=== PATIENT | male | born 1970 | race Caucasian/White ===

== ENCOUNTER 2021-08-09 12:14 | Emergency (ER) | payer SELFPAY ==
--- OUTSIDE RECORDS SUMMARY | 2021-08-09 12:17 | XMS REPORT | Continuity of Care Document ---
:1970 Author Organization [facility] t Address [address] [place] [address] Dr. Strauss [address] [place] [id number] Care Team Providers Name Role Phone Valente PARSONS Attending Clinician Unavailable Neela ASHER Attending Clinician Unavailable De REZA Attending Clinician Unavailable Problems This patient has no known problems. Allergies, Adverse Reactions, Alerts Allergy Allergy Status Severity Reaction(s) Onset Inactive Treating Comm ents Source Name Type Date Date Clinician NO KNOWN Drug Active [facility] Medications This patient has no known medications. Procedures This patient has no known procedures. Encounters Start End Encounter Admission Attending Care Care Encounter Source Date/Time Date/Time Type Type Clinicians Facility Department ID 2020-04-09 2020-04-09 Emergency X PARSONS [facility] ERT [id number] [facility] 02:09:00 02:09:00 [facility] 2020-04-07 2020-04-07 Emergency X LB [facility] ERT [id number] [facility] 08:13:00 08:13:00 [facility] 2020-03-19 2020-03-19 Emergency X GRACIELA REZA [facility] ERT [id number] [facility] 14:02[facility] 2020-02-03 2020-02-03 Emergency X [facility] ERT [id number] [facility] 18:26[facility] 2020-01-01 2020-01-01 Emergency X [facility] ERT [id number] Univers 17:37:53 17:37:53 [facility] Results This patient has no known results.
[2021-08-09] MEDS ORDERED: TETRACAINE HCL 0.5% 4ML OPTH ONE (13:04)
--- NOTE | 2021-08-09 13:24 | ER ---
Nurse's Notes [facility] Name: Edward Altamirano Age: 51 yrs Sex: Male : 1970 Arrival Date: 08/09/2021 Time: 12:15 Bed 30 Private MD: Diagnosis: Foreign body in cornea, right eye, initial encounter Presentation: 08/09 12:37 Chief complaint: Patient states: Possible FB to R eye since last night. Coronavirus ll1 screen: Vaccine status: Patient reports being unvaccinated. Client denies travel out of the [place] in the last 14 days. At this time, the client does not indicate any symptoms associated with coronavirus-19. Ebola Screen: Patient denies travel to an Ebola-affected area in the 21 days before illness onset. Initial Sepsis Screen: Does the patient meet any 2 criteria? No. Patient's initial sepsis screen is negative. Does the patient have a suspected source of infection? Yes: Other: eye. Risk Assessment: Do you want to hurt yourself or someone else? Patient reports no desire to harm self or others. Onset of symptoms was August 08, 2021. 12:37 Method Of Arrival: Ambulatory ll1 12:37 Acuity: BESSY 4 ll1 Triage Assessment: 12:53 General: Behavior is calm, cooperative. Pain: Complains of pain in right eye. ss7 Historical: - Allergies: 12:38 No Known Allergies; ll1 - PMHx: 12:38 None; ll1 - PSHx: 12:38 None; ll1 - Immunization history:: Client reports having NOT received the Covid vaccine. - Social history:: Smoking status: Patient reports the use of cigarette tobacco products, smokes one pack cigarettes per day. - Family history:: not pertinent. - Hospitalizations: : No recent hospitalization is reported. Screenin:48 Abuse screen: Denies threats or abuse. Nutritional screening: No deficits noted. ss7 Tuberculosis screening: No symptoms or risk factors identified. Fall Risk None identified. Assessment: 12:50 General: Appears in no apparent distress. Neuro: No deficits noted. Cardiovascular: No ss7 deficits noted. Respiratory: No deficits noted. GI: No deficits noted. EENT: Reports FOREIGN BODY TO OS. VISUAL ACUITY FOLLOWS: OU: 20/30 0D:20/40 OS:20/30. Derm: No deficits noted. Musculoskeletal: No deficits noted. 13:42 Reassessment: Pt given dc instructions with all personal belongings. States that ss7 symptoms have improved. Ambulatory to check out with all personal belongings. . Vital Signs: 12:37 BP 148 / 97; Pulse 55; Resp 16; Temp 97.5; Pulse Ox 100% ; Weight 72.57 kg; Height 5 ll1 ft. 7 in. (170.18 cm); Pain 9/10; 13:41 BP 145 / 95; Pulse 60; Resp 18; Pulse Ox 99% ; ss7 12:37 Body Mass Index 25.06 (72.57 kg, 170.18 cm) ll1 ED Course: 12:15 Patient arrived in ED. as 12:38 Triage completed. ll1 12:39 Arm band placed on. ll1 12:49 Patient has correct armband on for positive identification. ss7 12:49 No provider procedures requiring assistance completed. ss7 12:50 Martin Arteaga MD is Attending Physician. rn 13:23 Ino Hernandez MD is Referral Physician. rn Administered Medications: 13:07 Drug: Tetracaine Drops 0.5 % 1 drops {Note: GIVEN PER PROVIDER.} Route: Ophthalmic; ss7 Site: right eye; Outcome: 13:23 Discharge ordered by . rn 13:43 Patient left the ED. ss7 Signatures: Leatha Freeman Roman, MD MD rn Lewis, Lynsay, RN RN ll1 Mary Carson RN RN ss7
--- NOTE | 2021-08-09 13:25 | EDPHYS ---
Physician Documentation [facility] Name: Edward Altamirano Age: 51 yrs Sex: Male : 1970 Arrival Date: 08/09/2021 Time: 12:15 Bed 30 Private MD: ED Physician Martin Arteaga HPI: 08/09 13:20 This 51 yrs old Male presents to ER via Ambulatory with complaints of Foreign Body In rn Eye. 13:20 The patient is experiencing foreign body sensation, The patient sustained Unknown. to rn the right eye, caused by metal fragment. Onset: The symptoms/episode began/occurred yesterday. Duration: the symptoms are continuous. Aggravated by blinking, rubbing, Alleviated by nothing. Associated signs and symptoms: Pertinent negatives: fever. Patient does not utilize any form of vision correction. Severity of symptoms: At their worst the symptoms were mild in the emergency department the symptoms are unchanged. The patient has not experienced similar symptoms in the past. The patient has not recently seen a physician. Patient reports foreign body in right eye, noticed yesterday, does not recall exactly what it could be but works as a diesel engine mechanic apprentice and suspects piece of metal. No high-speed injury. Vision is normal. Sees black object in cornea of right eye. Historical: - Allergies: 12:38 No Known Allergies; ll1 - PMHx: 12:38 None; ll1 - PSHx: 12:38 None; ll1 - Immunization history:: Client reports having NOT received the Covid vaccine. - Social history:: Smoking status: Patient reports the use of cigarette tobacco products, smokes one pack cigarettes per day. - Family history:: not pertinent. - Hospitalizations: : No recent hospitalization is reported. ROS: 13:20 Constitutional: Negative for fever, chills, and weight loss, Eyes: Positive for foreign rn body in right eye Exam: 13:20 Visual Acuity: Visual acuity is within normal limits. rn 13:20 Constitutional: This is a well developed, well nourished patient who is awake, alert, and in no acute distress. Head/Face: Normocephalic, atraumatic. Eyes: Right lateral cornea with embedded metal foreign body at 9:00, does not appear to be in [id number]. Small rust ring noted Vital Signs: 12:37 BP 148 / 97; Pulse 55; Resp 16; Temp 97.5; Pulse Ox 100% ; Weight 72.57 kg; Height 5 ll1 ft. 7 in. (170.18 cm); Pain 9/10; 13:41 BP 145 / 95; Pulse 60; Resp 18; Pulse Ox 99% ; ss7 12:37 Body Mass Index 25.06 (72.57 kg, 170.18 cm) ll1 Procedures: 13:20 Foreign Body Removal: a piece of metal, from the right eye, cornea without use of slit rn lamp by using a cotton-tipped swab, Dressing: none, The patient tolerated the removal well, Used cotton tip swab. Used tetracaine. Tolerated well and feels much better and foreign body sensation gone.. MDM: 12:50 Patient medically screened. rn 13:20 Differential diagnosis: Foreign body in. Differential diagnosis: Foreign body in right rn eye. Data reviewed: vital signs, nurses notes. Counseling: I had a detailed discussion with the patient and/or guardian regarding: the historical points, exam findings, and any diagnostic results supporting the discharge/admit diagnosis, the need for outpatient follow up, to return to the emergency department if symptoms worsen or persist or if there are any questions or concerns that arise at home. Response to treatment: the patient's symptoms have markedly improved after treatment, and as a result, I will discharge patient. Special discussion: I discussed with the patient/guardian in detail that at this point there is no indication for admission to the hospital. It is understood, however, that if the symptoms persist or worsen the patient needs to return immediately for re-evaluation. Based on the history and exam findings, there is no indication for further emergent testing or inpatient evaluation. I discussed with the patient/guardian the need to see the opthamologist for further evaluation of the symptoms. ED course: Recommend ophthalmology follow-up given rust ring still present. Will DC home with antibiotic ointment and return precautions.. Administered Medications: 13:07 Drug: Tetracaine Drops 0.5 % 1 drops {Note: GIVEN PER PROVIDER.} Route: Ophthalmic; ss7 Site: right eye; Disposition Summary: 08/09/21 13:23 Discharge Ordered Location: Home rn Problem: new rn Symptoms: have improved rn Condition: Stable rn Diagnosis - Foreign body in cornea, right eye, initial encounter rn Followup: rn - With: Ino Hernandez MD - When: Upon discharge from the Emergency Department - Reason: Recheck today's complaints, Re-evaluation by your physician Discharge Instructions: - Discharge Summary Sheet rn - Eye Foreign Body rn Forms: - Medication Reconciliation Form rn - Thank You Letter rn - Antibiotic diesel service journeyman - Prescription Opioid Use rn Prescriptions: - Erythromycin 5 mg/gram (0.5 %) Ophthalmic Ointment - apply 1 centimeter by OPHTHALMIC route 2-3 times daily for 7 days; 1 tube; rn Refills: 0, Product Selection Permitted Signatures: Martin Arteaga MD MD rn Lewis, Lynsay RN RN ll1 Mary Carson RN RN ss7
[2021-08-09 14:40] VITALS: TEMP 97.5
[2021-08-09 14:41] VITALS: BP 145/95; O2SAT 99
== END 2021-08-09 13:43 | disposition home or self-care (01) ==
LOC: ER 12:14
PROC: 08C8XZZ Extirpation of Matter from Right Cornea, External Approach (ICD-10-PCS; principal; 2021-08-09)
DX: T15.01XA Foreign body in cornea, right eye, initial encounter (principal); F17.210 Nicotine dependence, cigarettes, uncomplicated
CPT/HCPCS: 99282